=== PATIENT | female | born 1990 | race Caucasian/White ===

== ENCOUNTER 2016-07-11 14:50 | Emergency (ER) | payer BC ==
[2016-07-11 15:06] VITALS: BP 117/65
--- NOTE | 2016-07-11 16:05 | UC ---
FLU HPI - HPI Summary HPI Summary: SORE THROAT AND BODY ACHES TODAY; SENT BY MEDICAL OFFICE RECEPTIONIST ASSISTANT (OJE) TO TEST FOR INFLUENZA. IF POSITIVE, THEN MEDICAL OFFICE RECEPTIONIST ASSISTANT OKAYED TAMIFLU; DID NOT RECEIVE FLU SHOT. - History of Current Complaint Chief Complaint: UCRespiratory Stated Complaint: SORE THROAT AND SINUS CONGESTION Time Seen by Provider: 07/11/16 15:08 Hx Obtained From: Patient ?: Yes Onset/Duration: Sudden Onset, Lasting Hours, Still Present Severity Currently: Mild Severity Initially: Mild Associated Signs & Symptoms: Positive: T Max, F/C, Sore Throat Related Hx: Possible Flu/Infectious Exposure - Allergy/Home Medications Allergies/Adverse Reactions: Allergies Allergy/AdvReac Type Severity Reaction Status Date / Time pollen Allergy Unknown Uncoded 07/11/16 15:06 Reaction Details Home Medications: Home Medications Vitamin [Calna] 07/11/16 [History] PMH/Surg Hx/FS Hx/Imm Hx Previously Healthy: Yes - Surgical History Surgical History: Yes Surgery Procedure, Year, and Place: 09/2015 - Family History Known Family History: Negative: Respiratory Disease - Social History Occupation: Employed Full-time Lives: With Family Alcohol Use: None Substance Use Type: None Smoking Status (MU): Never Smoked Tobacco - Immunization History Most Recent Influenza Vaccination: did not receive Most Recent Tetanus Shot: 07/18/15 Most Recent Pneumonia Vaccination: none Review of Systems Constitutional: Fever, Chills Skin: Negative Eyes: Negative ENT: Sore Throat Respiratory: Negative Cardiovascular: Negative Gastrointestinal: Negative Genitourinary: Negative Motor: Negative Neurovascular: Negative Musculoskeletal: Myalgia Neurological: Negative Psychological: Negative All Other Systems Reviewed And Are Negative: Yes Physical Exam Triage Information Reviewed: Yes Appearance: Well-Appearing, No Pain Distress, Well-Nourished Vital Signs: Initial Vital Signs Temp 97.9 F 07/11/16 15:03 Pulse 74 07/11/16 15:03 Resp 18 07/11/16 15:03 BP 117/65 07/11/16 15:03 Pulse Ox 99 07/11/16 15:03 Vital Signs Reviewed: Yes Eye Exam: Normal ENT: Positive: Normal ENT inspection, Hearing grossly normal, Pharynx normal, TMs normal Dental Exam: Normal Neck exam: Normal Neck: Positive: Supple, Nontender Respiratory Exam: Normal Respiratory: Positive: Chest non-tender, Lungs clear, Normal breath sounds, No respiratory distress, No accessory muscle use Cardiovascular Exam: Normal Cardiovascular: Positive: RRR, No Murmur, Pulses Normal Abdominal Exam: Normal Musculoskeletal Exam: Normal Neurological Exam: Normal Psychological Exam: Normal Skin Exam: Normal Flu Course/Dx - Differential Dx/Diagnosis Differential Diagnosis/HQI/PQRI: Broncholiolitis, Influenza, RSV, Upper Respiratory Infection Provider Diagnoses: UPPER RESPIRATOY INFECTION. VIRAL SYNDROME Discharge - Discharge Plan Condition: Stable Disposition: HOME Patient Education Materials: Viral Syndrome (ED) Referrals: [facility] [Outside] Eufemia Wynn MD [Medical Doctor] - No Primary Care Phys,NOPCP [Primary Care Provider] -
== END 2016-07-11 16:03 | disposition home or self-care (01) ==
LOC: UCEAST 14:50
DX: J06.9 Acute upper respiratory infection, unspecified (principal); B34.9 Viral infection, unspecified
CPT/HCPCS: 87502; 99212; G0463

== ENCOUNTER 2016-07-18 08:08 | Emergency (ER) | payer BC ==
[2016-07-18 08:23] VITALS: BP 100/55
--- NOTE | 2016-07-18 08:27 | UC ---
Respiratory Complaint HPI - HPI Summary HPI Summary: 3 DAYS OF COUGH, CHEST CONGESTION, HOARSENESS, MILD ST. NO FEVER, EAR PAIN, N/V/ D. HAD FLU LIKE SX LAST WEEK THAT RESOLVED. FLU SWAB NEGATIVE. NO FLU SHOT THIS SEASON. 24 WEEKS . - History of Current Complaint Chief Complaint: UCRespiratory Stated Complaint: COUGH NO VOICE 24 WEEKS PREG Time Seen by Provider: 07/18/16 08:24 Hx Obtained From: Patient Hx Last Menstrual Period: 24 wks preg. Onset/Duration: Gradual Onset, Lasting Days, Still Present Timing: Constant Severity Initially: Moderate Severity Currently: Moderate Pain Intensity: 0 Pain Scale Used: 0-10 Numeric Character: Cough: Nonproductive Aggravating Factors: Nothing Alleviating Factors: Nothing Associated Signs And Symptoms: Positive: URI, Nasal Congestion, Hoarseness. Negative: Dyspnea, Fever, Chills, Pleuritic Chest Pain, Wheezing, Hemoptysis, Dizziness, Calf Pain, Calf Swelling, Edema, Sinus Discomfort - Allergies/Home Medications Allergies/Adverse Reactions: Allergies Allergy/AdvReac Type Severity Reaction Status Date / Time pollen Allergy Unknown Uncoded 07/11/16 15:06 Reaction Details PMH/Surg Hx/FS Hx/Imm Hx Previously Healthy: Yes - Surgical History Surgical History: Yes Surgery Procedure, Year, and Place: 09/2015 - Family History Known Family History: Positive: Hypertension Negative: Respiratory Disease - Social History Alcohol Use: None Substance Use Type: None Smoking Status (MU): Never Smoked Tobacco - Immunization History Most Recent Influenza Vaccination: did not receive Most Recent Tetanus Shot: 07/18/15 Most Recent Pneumonia Vaccination: none Review of Systems Constitutional: Fatigue ENT: Sore Throat Respiratory: Cough Cardiovascular: Negative Gastrointestinal: Negative All Other Systems Reviewed And Are Negative: Yes Physical Exam Triage Information Reviewed: Yes Appearance: Well-Appearing, No Pain Distress, Well-Nourished Vital Signs: Initial Vital Signs Temp 97.8 F 07/18/16 08:16 Pulse 90 07/18/16 08:16 Resp 18 07/18/16 08:16 BP 100/55 07/18/16 08:16 Pulse Ox 96 07/18/16 08:16 Vital Signs Reviewed: Yes Eyes: Positive: Conjunctiva Clear ENT: Positive: Hearing grossly normal, Pharynx normal, TMs normal, Muffled/ hoarse voice Neck: Positive: Supple, Nontender, Enlarged Nodes @ - RIGHT SIDED SPFL CERVICAL LAD - NON TENDER Respiratory Exam: Normal Cardiovascular Exam: Normal Abdomen Description: Positive: Soft, Other: - GRAVID Musculoskeletal: Positive: No Edema Neurological: Positive: Alert Psychological: Positive: Age Appropriate Behavior Skin: Negative: rashes UC Diagnostic Evaluation - Laboratory O2 Sat by Pulse Oximetry: 96 Respiratory Course/Dx - Differential Dx/Diagnosis Differential Diagnosis/HQI/PQRI: Bronchitis, Lower Resp Infection, Sinusitis Provider Diagnoses: ACUTE URI/LARYNGITIS Discharge - Discharge Plan Condition: Stable Disposition: HOME Patient Education Materials: Upper Respiratory Infection (ED) Referrals: No Primary Care Phys,NOPCP [Primary Care Provider] - Additional Instructions: KEEP YOUR FOLLOW-UP WITH [facility] SCHEDULED. NO INDICATION FOR ANTIBIOTICS AT PRESENT. CONSERVATIVE MANAGEMENT - REST, HYDRATE. ILLNESS TENDS TO TAKE LONGER THAN NORMAL TO RESOLVE WHEN .
== END 2016-07-18 08:44 | disposition home or self-care (01) ==
LOC: UCEAST 08:08
DX: O26.892 Other specified pregnancy related conditions, second trimester (principal); Z3A.24 24 weeks gestation of pregnancy; J06.9 Acute upper respiratory infection, unspecified; J04.0 Acute laryngitis
CPT/HCPCS: 99211; G0463

== ENCOUNTER 2016-11-05 08:13 | Inpatient (IN) | payer BC ==
[2016-11-04 16:20] LABS: Hematocrit 37 % (35-47); Mean Corpuscular HGB Conc 33 g/dl (31-36); Mean Corpuscular Hemoglobin 27 pg (27-31); Mean Corpuscular Volume 82 fL (80-97); Mean Platelet Volume 10 um3 (7.4-10.4); Red Blood Count 4.54 10^6/ul (4.0-5.4); Red Cell Distribution Width 14 % (10.5-15); White Blood Count 11.6 10^3/ul (3.5-10.8)
[~2016-11-05 08:13] MED LIST: Buffered Lidocaine 0.9% SYRIN* 5 ML/SYR SYRINGE INTRADERM ONE; Sodium Citrate/Citric Acid* 15 ML UDC PO ONE
[2016-11-05] MEDS ORDERED: ceFOXitin 2 GM IVPREMIX* 2 GM/50 ML BAG IVPB ONE (10:00)
[2016-11-05] MEDS ORDERED: MAGNESIUM SULF IVPB ONE (10:03)
[2016-11-05] MEDS ORDERED: Witch Hazel PAD* JAR TOPICAL PRN (10:04)
[2016-11-05] MEDS ORDERED: Morphine PF AMP (0.5MG/ML)* 5 MG/10 ML AMP ONE (10:13)
[2016-11-05] MEDS ORDERED: OXYTOCIN* 10 UNITS/ML 1 ML VIAL ONE (10:13)
[2016-11-05] MEDS ORDERED: Phenylephrine IV* 40 MCG/ML 10 ML SYRINGE ONE (10:13)
[2016-11-05] MEDS ORDERED: Ondansetron INJ* 2 MG/ML VIAL IV PRN ×2 (11:04→11:05)
[2016-11-05] MEDS ORDERED: fentaNYL* 50 MCG/ML 2 ML VIAL (100 MCG VIAL) IV PRN (11:04)
[2016-11-05] MEDS ORDERED: oxyCODONE/Acetamin 5/325 MG* TAB PO PRN ×2 (11:05)
[2016-11-05] MEDS ORDERED: Naloxone* 0.4 MG/ML 1 ML VIAL IV PRN (11:05)
[2016-11-05] MEDS ORDERED: Ondansetron INJ* 2 MG/ML VIAL ONE (11:18)
[2016-11-05] MEDS ORDERED: fentaNYL* 50 MCG/ML 2 ML VIAL (100 MCG VIAL) ONE ×2 (11:23→11:26)
[2016-11-05] MEDS ORDERED: DiMENhydriNATE IV* 50 MG/ML VIAL ONE (11:25)
[2016-11-05] MEDS: Ketorolac INJ* 30 MG/ML 1 ML VIAL IV PRN ×2 (12:49→18:40)
[2016-11-05] MEDS: Simethicone CHEW TAB* 80 MG PO SCH ×3 (12:53→20:07)
[2016-11-05] MEDS: Nalbuphine* 20 MG/ML 1 ML VIAL IV PRN ×2 (13:14→23:12)
[2016-11-05] MEDS: Docusate CAP* 100 MG PO SCH ×2 (14:32→20:07)
[2016-11-05] MEDS: diPHENhydraMINE IV* 50 MG/ML 1 ml VIAL (BENADRYL) IV PRN ×2 (14:32→21:15)
[2016-11-06] MEDS: Ketorolac INJ* 30 MG/ML 1 ML VIAL IV PRN (02:33)
[2016-11-06] MEDS ORDERED: oxyCODONE/Acetamin 5/325 MG* TAB PO PRN (03:00)
--- NOTE | 2016-11-06 07:23 | OP ---
DATE OF OPERATION: 11/05/16 - ROOM #115 DATE OF : 86 SURGEON: Sg Lundberg MD TERMINAL GAUGER SUPERVISOR: Annamaria Roberts CNM. ANESTHESIOLOGIST: Dr. Beard. ANESTHESIA: Spinal. PRE-OP DIAGNOSIS: A 40 weeks' gestation with history of previous . POST-OP DIAGNOSIS: A 40 weeks' gestation with history of previous . OPERATIVE PROCEDURE: Repeat low transverse section with vacuum assist. ESTIMATED BLOOD LOSS: 600 cc. URINE OUTPUT: 150 cc. IV FLUIDS: 2650 cc of lactated Ringer's. MATERIALS TO LAB: Cord blood. COMPLICATIONS: None. INDICATIONS: This patient was a 26-year-old 2 para 1 with a history of prior section. The patient's course had been unremarkable. She declined a trial of labor and desired to proceed with a repeat section. The patient had previously been considering a trial of labor, so she scheduled a at 40 weeks' gestation and then declined changing the date once she no longer desired the trial of labor. She was extensively counseled for the procedure and consent was signed. FINDINGS: Normal appearing uterus, fallopian tubes, and ovaries. Delivery was productive of a female weighing 9 pounds 1 ounce with Apgars of 9 and 9. Time of delivery was 1114. DESCRIPTION OF PROCEDURE: The risks, benefits, and alternatives were described to the patient, and informed consent was obtained. The patient was taken to the operating room with IV running, where spinal anesthesia was induced and found to be adequate. The patient was prepped and draped in normal sterile fashion in the dorsal supine position with a leftward tilt. A Pfannenstiel skin incision was made with a scalpel through the patient's previous incision. This was carried down to the underlying fascia using the scalpel. The fascia was scored in the midline, and the incision was extended using Lowe scissors. The fascia was dissected off the underlying rectus muscles using blunt and sharp dissection. The rectus muscles were in the midline using dissection with a Radha clamp. The peritoneum was then entered bluntly. A bladder blade was placed. A bladder flap was created sharply using Metzenbaum scissors. A low transverse uterine incision was then made with the scalpel. This was carried down to the amniotic membranes. The membranes were then ruptured, productive of clear fluid. The uterine incision was extended using blunt traction. The head was elevated to the level of the incision but despite fundal pressure, the head could not be delivered up through the incision. A Kiwi vacuum was applied to the scalp and, with fundal pressure and gentle traction, the head delivered without difficulty. The Kiwi was removed. The shoulders then were also both delivered and the body followed. The had excellent tone and cried immediately on delivery. The cord was doubly clamped and cut. The was then handed to the awaiting soiled linen distributor. Cord blood was collected. The placenta was delivered with manual extraction. The uterus was then exteriorized and cleared of all clots and debris. The uterine incision was then reapproximated using 0 Polysorb in a running-locked fashion. A second layer of imbricating 0 Polysorb sutures was then also placed for good hemostasis. The posterior cul-de-sac was irrigated with saline. The uterus was then returned to the abdomen. The incision was reinspected and still noted to be hemostatic. The peritoneum was closed with 3-0 Polysorb in a running fashion. The fascia was closed with 0 Polysorb in a running fashion. The subcutaneous tissues were copiously irrigated and made hemostatic using the Bovie. The skin was then closed with 4-0 Monocryl in a subcuticular stitch. Mastisol and steristrips were applied. A sterile bandage was then placed over the incision. The patient tolerated the procedure well. Sponge, lap, and needle counts were correct x2. [id number]/[facility] #: [id number] [facility]ICAL CENTERAnna
[2016-11-06 07:28] LABS: Hematocrit 32 % (35-47); Hemoglobin 10.6 g/dl (12.0-16.0); Mean Corpuscular HGB Conc 33 g/dl (31-36); Mean Corpuscular Hemoglobin 27 pg (27-31); Mean Corpuscular Volume 82 fL (80-97); Mean Platelet Volume 10 um3 (7.4-10.4); Red Blood Count 3.91 10^6/ul (4.0-5.4); Red Cell Distribution Width 15 % (10.5-15)
[2016-11-06] MEDS: Simethicone CHEW TAB* 80 MG PO SCH ×4 (08:41→21:04)
[2016-11-06] MEDS: Docusate CAP* 100 MG PO SCH ×3 (08:41→21:04)
[2016-11-06] MEDS ORDERED: Ferrous Gluconate TAB* 324 MG TAB PO SCH (09:00)
[2016-11-06] MEDS: Ibuprofen TAB* 600 MG PO SCH ×3 (09:18→18:27)
[2016-11-06] MEDS: oxyCODONE/Acetamin 5/325 MG* TAB PO PRN ×2 (12:44→21:03)
[2016-11-07] MEDS: Ibuprofen TAB* 600 MG PO SCH ×3 (00:51→12:22)
[2016-11-07] MEDS: Docusate CAP* 100 MG PO SCH ×2 (07:52→12:22)
[2016-11-07] MEDS: Simethicone CHEW TAB* 80 MG PO SCH ×2 (07:52→12:22)
[2016-11-07] MEDS: oxyCODONE/Acetamin 5/325 MG* TAB PO PRN (07:52)
[2016-11-07 10:10] VITALS: BP 106/58
== END 2016-11-07 15:15 | disposition home or self-care (01) | DRG 540 ==
LOC: MCHOB 08:13
PROVIDERS: ADMIT Obstetrics & Gynecology; ATTEND Obstetrics & Gynecology
PROC: 10D00Z1 Extraction of Products of Conception, Low, Open Approach (ICD-10-PCS; principal; 2016-11-05 09:30)
DX: O34.211 Maternal care for low transverse scar from previous cesarean delivery (principal); Z37.0 Single live birth; Z3A.40 40 weeks gestation of pregnancy
CPT/HCPCS: 36415; 85025; 86850; 86900; 86901; A9270-GY; J0694; J1200; J1240; J1885; J2300; J2405; J2590; J3010

== ENCOUNTER 2016-11-11 21:44 | Emergency (ER) | payer BC ==
--- NOTE | 2016-11-11 23:02 | ED ---
Ashley Rene Edward, scribed for Partha Miranda MD on 11/11/16 at 2248 . Laceration/Wound HPI - HPI Summary HPI Summary: 26 y/o female presents to ED c/o a bad odor and discharge from the site of a C- section performed on 11/05/16. Associated sx: body aches today. PMHx G/P/A - 2/2 /0. Patient had a previous in September of 2015. - History of Current Complaint Stated Complaint: POSS C SECTION INFECTION Time Seen by Provider: 11/11/16 21:57 Hx Obtained From: Patient Hx Last Menstrual Period: 24 wks preg. Onset/Duration: Gradual Onset Pain Intensity: 0 Associated Signs & Symptoms: Discharge - Allergy/Home Medications Allergies/Adverse Reactions: Allergies Allergy/AdvReac Type Severity Reaction Status Date / Time pollen Allergy Unknown Uncoded 11/05/16 09:20 Reaction Details PMH/Surg Hx/FS Hx/Imm Hx Previously Healthy: Yes Musculoskeletal History: Reports: Hx Back Problems - Back pains Neurological History: Reports: Hx Migraine - Surgical History Surgery Procedure, Year, and Place: 11/05/16 and 09/2015 Infectious Disease History: Denies: Traveled Outside the [place] in Last 30 Days - Family History Known Family History: Positive: Hypertension Negative: Respiratory Disease - Social History Alcohol Use: None Substance Use Type: Reports: None Smoking Status (MU): Never Smoked Tobacco Review of Systems Positive: Other - Body aches Eyes: Negative ENT: Negative Cardiovascular: Negative Respiratory: Negative Gastrointestinal: Negative Positive: discharge - From incision site, other - Bad odor from incision site Musculoskeletal: Negative Skin: Negative Neurological: Negative Psychological: Normal All Other Systems Reviewed And Are Negative: Yes Physical Exam Triage Information Reviewed: Yes Vital Signs On Initial Exam: Initial Vitals Temp Pulse Resp BP Pulse Ox 97.5 F 63 18 117/38 99 11/11/16 21:46 11/11/16 21:46 11/11/16 21:46 11/11/16 21:46 11/11/16 21:46 Vital Signs Reviewed: Yes Appearance: Positive: Well-Appearing, No Pain Distress Skin: Positive: Warm Head/Face: Positive: Normal Head/Face Inspection Eyes: Positive: LILLIAN ENT: Positive: Hearing grossly normal Neck: Positive: Supple Respiratory/Lung Sounds: Positive: Clear to Auscultation, Breath Sounds Present Cardiovascular: Positive: RRR Abdomen Description: Positive: Nontender, Soft, Other: - healing c section scar , non tender, no drainage Bowel Sounds: Positive: Present Musculoskeletal: Positive: Strength/ROM Intact Neurological: Positive: Alert, Oriented to Person Place, Time Psychiatric: Positive: Affect/Mood Appropriate Diagnostics - Vital Signs Vital Signs Temp Pulse Resp BP Pulse Ox 11/11/16 21:46 97.5 F 63 18 117/38 99 - Laboratory Result Diagrams: 11/11/16 22:53 11/11/16 22:53 Lab Statement: Any lab studies that have been ordered have been reviewed, and results considered in the medical decision making process. Re-Evaluation - Re-Evaluation First Eval Change: Improved - results d/w pt Laceration Repair Course/Dx - Course Assessment/Plan: 26 y/o female presents to ED c/o a bad odor and discharge from the site of a performed on 11/05/16. Associated sx: body aches today. PMHx G/P/A - 2/2/0. Patient had a previous in September of 2015. Patient will be discharged with Myalgia and Postoperative Wound Recheck, with F/U with Dr. Sg Lundberg (OBGYN) in a week. Pt is agreeable with this plan. - Clinical Impression Provider Diagnoses: Myalgia, Encounter for postoperative wound check Discharge - Discharge Plan Condition: Stable Disposition: HOME Patient Education Materials: Musculoskeletal Pain (ED) Referrals: Sg Lundberg MD [Medical Doctor] - 1 Week (Follow up within the week please.) The documentation as recorded by the Ashley lundberg Edward accurately reflects the service I personally performed and the decisions made by me, Partha Miranda MD.
[2016-11-11 23:07] LABS: Hematocrit 40 % (35-47); Mean Corpuscular HGB Conc 33 g/dl (31-36); Mean Corpuscular Hemoglobin 27 pg (27-31); Mean Corpuscular Volume 83 fL (80-97); Mean Platelet Volume 9 um3 (7.4-10.4); Red Blood Count 4.81 10^6/ul (4.0-5.4); Red Cell Distribution Width 15 % (10.5-15)
[2016-11-11 23:23] LABS: BUN/Creatinine Ratio 26.4 (8-20); Calcium 8.9 mg/dL (8.6-10.3); EGFR Non-African American 96.5 (>60); Potassium 3.7 mmol/L (3.5-5.0)
[2016-11-11 23:27] VITALS: BP 102/59
== END 2016-11-11 23:28 | disposition home or self-care (01) ==
LOC: ED 21:44
DX: M79.1 Myalgia (principal); Z98.890 Other specified postprocedural states
CPT/HCPCS: 36415; 80048; 85025; 99282